=== PATIENT | male | born 1955 | race Caucasian/White ===

== ENCOUNTER 2020-11-25 08:51 | Inpatient (IN) ==
--- NOTE | 2020-10-26 14:05 | PAT Medication Instructions ---
Medication Instructions Date of Service October 26, 2020 Home Medications Medication Instructions Recorded oxycodone-acetaminophen [Percocet] 1 - 2 tab PO .Q4h-6h PRN #30 tab 03/05/20 MDD 6 allopurinol 300 mg PO 3XWK aspirin 81 mg PO QAM atorvastatin 20 mg PO QAM cholecalciferol (vitamin D3) [Vitamin D3] 125 mcg PO QAM fenofibrate micronized 134 mg PO 3XWK folic acid 1 mg PO QAM isosorbide mononitrate 30 mg PO QAM magnesium oxide 400 mg PO QAM metoprolol succinate 75 mg PO QAM Ozempic See Rx Instructions .ROUTE .COMPLEX oxycodone-acetaminophen [Percocet] 1 - 2 tab PO .Q4h-6h PRN Privigen 1 dose IV Q6M Continue as directed Ozempic See Rx Instructions .ROUTE .COMPLEX allopurinol 300 mg PO 3XWK ASK your prescriber and surgeon Privigen 1 dose IV Q6M STOP taking 48 hours before surgery fenofibrate micronized 134 mg PO 3XWK DO NOT take the morning of surgery cholecalciferol (vitamin D3) [Vitamin D3] 125 mcg PO QAM folic acid 1 mg PO QAM magnesium oxide 400 mg PO QAM Take morning of surgery With a small sip of water, OTHERWISE NOTHING TO EAT OR DRINK AFTER MIDNIGHT: atorvastatin 20 mg PO QAM isosorbide mononitrate 30 mg PO QAM metoprolol succinate 75 mg PO QAM oxycodone-acetaminophen [Percocet] 1 - 2 tab PO .Q4h-6h PRN (okay to take up to 4 hours prior to surgery if needed) Take evening before surgery oxycodone-acetaminophen [Percocet] 1 - 2 tab PO .Q4h-6h PRN (if needed) Other Notes If you have any questions please call us at [phone] or [phone] or [phone] or [phone]
--- NOTE | 2020-10-27 11:20 | Anesthesiology Consultation ---
Date of Service October 27, 2020 Assessment & Plan (1) Encounter for pre-operative examination: COVID Status: As of 10/27 assessment, patient denies travel to endemic area, known exposure/sick contacts, or symptoms of COVID19. Patient advised to adhere to social distancing guidelines, wear a mask in public and avoid large crowds or unnecessary travel in the 2 weeks leading up to surgery. Preoperative COVID19 testing to be completed prior to surgery per surgeon's arrangements (11/05 9). Patient encouraged to be extra cautious/conscientious with COVID precautions between COVID testing and surgery. S/P L shoulder scope 03/05/20 -- MAC 3, ETT 8.0, grade view 1. Smooth IV induction, DLx 1 atraumatic. Patient scheduled for cardiology clearance with [facility] 11/08/2020. Chart Review Chart Review: Acceptable Risk for Surgery (pending cardio clearance 11/08) and Patient seen in Pre Admission Testing Teaching & Discussion Instructed NPO after midnight before surgery, except medications with 15 cc of water. Medication instructions provided according to the PAT guidelines. History Surgery Operation Date: 11/25/20 09:15 Proposed Procedures p Left Total Knee Arthroplasty - Manuel Waldron DO Height/Weight Height: 5 ft 10 in Weight: 81.5 kg Allergies Allergy/AdvReac Type Severity Reaction Status Date / Time iodine Allergy Intermediate hives Verified 10/23/20 14:23 shellfish derived Allergy Intermediate hives Verified 10/23/20 14:23 Medications Home Medications Medication Instructions Recorded Confirmed Last Taken allopurinol 300 mg PO 3XWK 02/24/20 10/23/20 03/02/20 aspirin 81 mg PO QAM 02/24/20 10/23/20 03/01/20 atorvastatin 20 mg PO QAM 02/24/20 10/23/20 03/04/20 07:00 cholecalciferol (vitamin D3) 125 mcg PO QAM 02/24/20 10/23/20 03/04/20 07:00 [Vitamin D3] fenofibrate micronized 134 mg PO 3XWK 02/24/20 10/23/20 03/02/20 folic acid 1 mg PO QAM 02/24/20 10/23/20 03/04/20 07:00 isosorbide mononitrate 30 mg PO QAM 02/24/20 10/23/20 Unknown magnesium oxide 400 mg PO QAM 02/24/20 10/23/20 03/04/20 07:00 metoprolol succinate 75 mg PO QAM 02/24/20 10/23/20 03/04/20 08:00 Ozempic See Rx Instructions .ROUTE .COMPLEX 03/02/20 10/23/20 03/01/20 oxycodone-acetaminophen [Percocet] 1 - 2 tab PO .Q4h-6h PRN #30 tab 03/05/20 10/23/20 Unknown MDD 6 Privigen 1 dose IV Q6M 10/23/20 10/23/20 Unknown Past Medical History Medical History (Updated 10/27/20 @ 14:33 by Jayden Robbins) Asthma Per records -- no inh CAD (coronary artery disease) S/p stent to RCA (1997), CABG 1998, PCI x 3 approx 2004 at [place], cardiac cath 04/2015 with ISR PCI to RCA got repeat angioplasty GERD (gastroesophageal reflux disease) Per records Gout Hx of Hodgkins lymphoma 2018, s/p XRT, in remission, follows with S heme/onc. Recent PET scan clinically stable, next f/u with heme/onc 12/2020. Hx of myocardial infarction 1997 and had heart cath with 2 stents Hyperlipidemia Hypertension Multiple sclerosis Dx'ed 2011. Left sided weakness; follows with Dr. Cheko Sandhu, on Privigen (IVIg) infusions q6mo. Exercise / Class Metabolic Activity III < 4 Walking/Shop/Light housework (Denies CP or SOB with ambulation on one level, not doing stairs much due to leg weakness) Past Family History Family History Other No family history of adverse response to anesthesia Past Surgical History Surgical History History of cardiac cath 1997, 2004 - hx of multiple stents History of placement of ear tubes History of right inguinal hernia repair History of tonsillectomy History of tooth extraction Hx of CABG 1 vessel- CORRALES to LAD- 1998 - [facility] follow with [facility] cardio in [place] Hx of colonoscopy Hx of lymph node excision Past Anesthesia History No Hx of Anesthesia Complications and No Family Hx of Anesthesia Complications History of PONV No Hx of PONV and No Hx of Motion Sickness Social History Smoking Status: Former smoker Do You Dip or Chew Tobacco: No Smoking End Date: 20 years ago Hx Alcohol Use: No Hx Substance Use: No substance use type: does not use Review of Systems Pt denies any recent chest pain, shortness of breath, palpitations, cough, fever, URI, or uncontrolled acid reflux. Physical Exam Vital Signs BP: 120/83 P: 80bpm SPO2: 95% RA T: 98.5 F R: 14 ENMT Mouth: + dentures and + edentulous Thyromental Distance: > or= 3.5 Finger Breadths Mallampati Class: II Neck normal visual inspection; neck extension not limited Respiratory normal respiratory effort, lungs clear to auscultation + prolonged expiratory phase Cardiovascular RRR, no murmur, no edema Lab Results Anesthesia Preop Results Results Anesthesia Widget: WBC 3.56 K/uL (4.8-10.8) L 10/27/20 Hgb 15.1 g/dL (14.0-18.0) 10/27/20 Hct 46.0 % (42-52) 10/27/20 Plt 289 K/uL (130-400) 10/27/20 Na 139 mmol/L (136-145) 10/27/20 K 4.3 mmol/L (3.5-5.1) 10/27/20 Cl 107 mmol/L (98-107) 10/27/20 CO2 26 mmol/L (21-32) 10/27/20 BUN 31 mg/dl (7-18) H 10/27/20 Creat 1.13 mg/dl (0.6-1.4) 10/27/20 Glucose Level 143 mg/dl (70-99) H 10/27/20 PT 10.7 Seconds (9.0-12.0) 10/27/20 PTT 24.6 Seconds (21.0-31.0) 10/27/20 INR 1.1 (0.9-1.1) 10/27/20 HA1c 7.7 % (4.5-5.6) H 10/27/20 Urine Color Yellow 10/27/20 Urine Appearance Cloudy (Clear) A 10/27/20 Urine pH 5.5 (4.5-7.5) 10/27/20 Urine Specific Dar[place] 1.010 (1.000-1.030) 10/27/20 Urine Protein Negative (Negative) 10/27/20 Urine Glucose (UA) 2+ (Negative) H 10/27/20 Urine Ketones Negative (Negative) 10/27/20 Urine Blood Negative (Negative) 10/27/20 Urine Nitrite Negative (Negative) 10/27/20 Urine Bilirubin Negative (Negative) 10/27/20 Urine Urobilinogen Negative (Negative) 10/27/20 Urine Leukocyte Esterase Trace (Negative) H 10/27/20 Blood Type B Positive 10/27/20 Antibody Screen NEGATIVE 10/27/20 Testing Electrocardiogram Date: 07/14/20 Findings: + NSR @ (85bpm) RBBB. Chest X-Ray Date: 10/27/20 FINDINGS: There are postsurgical changes of a midline sternotomy. There is a right-sided A-Port catheter. There is no focal pulmonary consolidation. Rounded opacities of both lung bases are felt to represent nipple shadows. There is no failure. There is mild indistinctness of the left heart border, finding which is likely secondary to summation with a cardiophrenic angle fat pad. IMPRESSION: No active disease in the chest. Echocardiogram Date: 09/15/20 EF: 55-59% Mild concentric LVH. Grade 1 diastolic dysfunction of left ventricle. Nondilated cardiac chambers. Mild aortic valve sclerosis is present. Aortic stenosis is absent. Mild mitral annular calcifications. Significant mitral regurgitation is absent. The aortic root is mildly enlarged. Indeterminate IVC size and collapsibility. Right atrial pressure estimated at 8 mmHg. Trivial tricuspid regurgitation is present. The signal is inadequate to calculate PASP. No significant change compared to prior study from 2011. Stress Test Date: 06/08/18 Type: nuclear Resting EF: 74% Normal Lexiscan myocardial perfusion stress test. Cardiac Catheterization Date: 04/21/15 Impression: Significant two-vessel coronary artery disease. Patent CORRALES graft to LAD. Successful angioplasty and intravascular ultrasound imaging of the occluded RCA vessel where the previously deployed stents were placed. No additional stenting was performed. Normal LV systolic function. Other Testing PET/CT skull base to midthigh 09/14/20 1. Mildly hypermetabolic retrocaval lymph node with FDG uptake slightly greater than liver, which appears stable as compared with prior PET/CT dated 04/16/2020 and new as compared with the prior PET/CT dated 10/02/2019, concerning for lymphomatous involvement. 2. A stable mildly hypermetabolic enlarged left external iliac lymph node with FDG uptake less than that of blood pool. 3. 3 mildly to moderately hypermetabolic small subcutaneous nodules in the left upper medial thigh adjacent to gluteal region. Differential considerations include infectious/inflammatory process versus lymphomatous involvement. Recommended correlation with targeted physical examination. 4. Interval appearance of a patchy groundglass opacity in the right upper lobe with associated mild increased FDG uptake, likely representing infectious/inflammatory process. 5. Interval appearance of a fracture involving the left anterior 10th rib with associated increased FDG uptake.
--- NOTE | 2020-11-10 08:25 | History & Physical Report ---
Date of Service November 10, 2020 date of surgery: 11/25/20 Procedure: Left Total Knee Arthroplasty Assessment & Plan (1) Arthritis of knee, left: Further care discussed with patient and at this point in time has failed conservative measures and would like to proceed with a left total knee repl acement. Plan on discharge will be home with home health physical therapy. DVT prophylaxis with TEDs, SCDs and will also place on aspirin 81 mg p.o. b.i.d. for a month postop. Patient will have follow up appointment in our office two weeks post op for staple/suture removal and re-evaluation. Patient otherwise has no other questions or concerns. The risks and benefits have been discussed including, but not limited to, risk of infection, nerve injury, stiffness, loss of motion, failure to improve, etc. Reasonable outcomes and options of treatment were discussed. An explanation of appropriate alternatives to the procedure that may be advantageous were discussed and their risks and benefits, as well as the risks and benefits of not proceeding with treatment. I offered to answer any additional inquiries concerning the treatment involved. All the patient's questions were answered. The patient is agreeable, understanding of the treatment plan and alternatives, and wishes to proceed with the treatment plan. History of Present Illness Chief Complaint: left knee pain Primary Care Provider: LO PCP Otto is a 64 year old male who complains of left knee pain, presents for pre-op evaluation prior to a left total knee replacement by Dr Waldron at [facility]. He complains of pain and decreased range of motion in his left knee. Currently the patient states that the symptoms are moderate-severe and rated at 8/10. The pain is described as aching, sharp and throbbing. The symptoms occur continuously. The symptoms are aggravated by ascending stairs, daily activities, first steps while awake walking. Prior NSAIDs include IBU and Aleve. he has been treated with previous cortisone and visco injections in the past without much relief. Allergies Allergy/AdvReac Type Severity Reaction Status Date / Time iodine Allergy Intermediate hives Verified 10/23/20 14:23 shellfish derived Allergy Intermediate hives Verified 10/23/20 14:23 Home Medications Medication Instructions Recorded Confirmed Type allopurinol 300 mg PO 3XWK 02/24/20 10/23/20 History aspirin 81 mg PO QAM 02/24/20 10/23/20 History atorvastatin 20 mg PO QAM 02/24/20 10/23/20 History cholecalciferol (vitamin D3) 125 mcg PO QAM 02/24/20 10/23/20 History [Vitamin D3] fenofibrate micronized 134 mg PO 3XWK 02/24/20 10/23/20 History folic acid 1 mg PO QAM 02/24/20 10/23/20 History isosorbide mononitrate 30 mg PO QAM 02/24/20 10/23/20 History magnesium oxide 400 mg PO QAM 02/24/20 10/23/20 History metoprolol succinate 75 mg PO QAM 02/24/20 10/23/20 History Ozempic See Rx Instructions .ROUTE .COMPLEX 03/02/20 10/23/20 History oxycodone-acetaminophen [Percocet] 1 - 2 tab PO .Q4h-6h PRN #30 tab 03/05/20 10/23/20 Rx MDD 6 Privigen 1 dose IV Q6M 10/23/20 10/23/20 History Past Med/Surg History Medical History Asthma Per records -- no inh CAD (coronary artery disease) S/p stent to RCA (1997), CABG 1998, PCI x 3 approx 2004 at [place], cardiac cath 04/2015 with ISR PCI to RCA got repeat angioplasty GERD (gastroesophageal reflux disease) Per records Gout Hx of Hodgkins lymphoma 2018, s/p XRT, in remission, follows with S heme/onc. Recent PET scan 09/15/20 clinically stable, next f/u with heme/onc 12/2020. Hx of myocardial infarction 1997 and had heart cath with 2 stents Hyperlipidemia Hypertension Multiple sclerosis Dx'ed 2011. Left sided weakness; follows with Dr. Cheko Sandhu, on Privigen (IVIg) infusions q6mo. Surgical History History of cardiac cath 1997, 2004 - hx of multiple stents History of placement of ear tubes History of right inguinal hernia repair History of tonsillectomy History of tooth extraction Hx of CABG 1 vessel- CORRALES to LAD- 1998 - [facility] follow with [facility] cardio in [place] Hx of colonoscopy Hx of lymph node excision Family History Other No family history of adverse response to anesthesia Social History Smoking Status: Former smoker Second Hand Exposure: No; Hx Alcohol Use: No Hx Substance Use: No Preferred Language: Haitian Communication Ability: Effective Maintenance Trainer Required: No Beliefs That Will Affect Care: None Current Living Situation: Spouse Feels Safe at Home: Yes Assistive Devices: Cane, Denture - Upper, Denture - Lower and Glasses Review of Systems Review of Systems: All systems reviewed & are unremarkable except as noted in HPI & below Constitutional: no fever, no chills and no sweats Respiratory: no cough and no dyspnea Cardiovascular: no chest pain, no dyspnea and no orthopnea Gastrointestinal: no abdominal pain, no nausea and no vomiting Musculoskeletal: as per Subjective / HPI Physical Exam Physical Exam: HT: 5ft 10in WT: 81.5kg Constitutional: WD/WN, vitals as above no acute distress Respiratory: normal respiratory effort, lungs clear to auscultation no respiratory distress, no labored breathing and does not use accessory muscles Cardiovascular: RRR, no murmur, no edema Gastrointestinal (Abdomen): normal bowel sounds, soft, nontender, no hepatosplenomegaly Musculoskeletal: Knee: + knee abnormal to inspection (LEFT KNEE), + effusion (+1 effusion), + limited ROM of knee (ROM 0/3/110), + knee ROM with crepitation, + joint line tenderness (medial joint line) and + Max's sign positive; no deformity, no skin erythema, no ecchymosis, no valgus laxity, no varus laxity, anterior drawer test negative, Hilda's sign negative and pivot shift test negative Results & Data Results & Data ([facility]) Diagnostic Findings xrays and MRI reviewed which confirm osteoarthritis of his left knee, joint space narrowing and osteophyte formation. no acute bony pathology.
[~2020-11-25 08:51] MED LIST: ACETAMINOPHEN 500 MG TAB PO SCH; BUPIVACAINE 0.25% 30 ML VIAL ONE; BUPIVACAINE 0.5 % 5 MG/1 ML PF 10ML VIAL ONE; CeleBREX 200 MG CAP PO SCH; DEXAMETHASONE SOD INJ 4 MG/ML VIAL ONE; EPINEPHrine INJ 1 MG/ML AMP ONE; FAMOTIDINE 20 MG TAB PO SCH; GABAPENTIN 600 MG DOSE PO SCH; LR 500ML BOLUS, THEN 15ML/HR IV SCH; METOCLOPRAMIDE HCL 10 MG TABLET PO SCH; ROPIVACAINE 0.5% HCL/PF 150 MG, BUPIVACAINE 0.75% MPF 20 ML, EPINEPHrine 30MG/30ML (OR ... INSTIL SCH; TRANEXAMIC ACID 1,000 MG **IV Intra-op IV SCH; TRANEXAMIC ACID 1,000 MG **IV Pre-op IV SCH; ceFAZolin 2000MG 2,000 MG/15 ML SYR IV SCH; oxyCODONE HCL 10 MG TABCR (OxyCONTIN) PO SCH
--- NOTE | 2020-11-25 09:49 | History & Physical Bridge Note ---
Date of Service November 25, 2020 History & Physical Bridge Note I have examined the patient, reviewed the History & Physical and in the interval since the performance of the History & Physical I have noted the following changes of clinical significance: no changes noted
[2020-11-25] MEDS ORDERED: ONDANSETRON INJ 2 MG/ML 2 ML VIAL ONE (11:05)
[2020-11-25] MEDS ORDERED: DEXAMETHASONE SOD INJ 4 MG/ML VIAL ONE (11:05)
[2020-11-25] MEDS ORDERED: PROPOFOL IV EMULSION 10 MG/ML 20 ML VIAL IV ONE ×2 (11:05→12:46)
[2020-11-25] MEDS ORDERED: LIDOCAINE 2% 2 ML VIAL/AMP(20MG/ML) INFIL ONE (11:05)
[2020-11-25] MEDS ORDERED: fentaNYL citrate 100 MCG/2 ML VIAL ONE (11:08)
[2020-11-25] MEDS ORDERED: MIDAZOLAM HCL 1 MG/ML 2ML VIAL ONE (11:08)
[2020-11-25] MEDS ORDERED: ORTHO JOINT ANESTHETIC ONE (11:33)
[2020-11-25] MEDS ORDERED: fentaNYL citrate 100 MCG/2 ML VIAL IV PRN (11:57)
[2020-11-25] MEDS ORDERED: ATROPINE SULFATE 0.1 MG/ML 10ML SYR IV PRN (11:57)
[2020-11-25] MEDS ORDERED: ONDANSETRON INJ 2 MG/ML 2 ML VIAL IV PRN ×2 (11:57→16:38)
[2020-11-25] MEDS ORDERED: ePHEDrine sulfate 50 MG/ML AMP IV PRN (11:57)
--- NOTE | 2020-11-25 13:15 | Operative Report ---
Post Operative Report Pre & Post Diagnosis Operation Date: 11/25/20 11:25 Pre-Op Diagnosis: Osteoarthritis, Left Knee Post-Op Diagnosis: Osteoarthritis, Left Knee I identified the patient and participated in the time-out.: Yes Procedure Operation Date: 11/25/20 11:25 Actual Procedures p Left Total Knee Arthroplasty(Left) utilizing [employer] persona femur size 10 narrow tibia size F polytwelve medial constrained patella 31 x 8 oval- Manuel Waldron DO Surgeon Manuel Waldron DO Quality Management Nurse Deniz TIDWELL Estimated Blood Loss 5 Findings Consistent with Post-Op Diagnosis Patient presents with severe DJD left knee no response to conservative management patient has [id number] changes patellofemoral medial compartment patient has marginal osteophytes subchondral sclerosis subchondral cystic change as well as a moderate to large effusion Specimens Bone and cartilage Drains Medium bore Hemovac Anesthesia Type MAC Spinal Regional Complications none Disposition Accompanied Patient To Recovery: No Disposition: Recovery Room Indications Patient presents with DJD left knee after failed attempted conservative management clinic physical therapy anti-inflammatories relative rest activity modification corticosteroid injection viscosupplementation above intraoperative findings were noted Description of Procedure After proper prepping and draping of the left lower extremity anterior midline incision was made over the region of the extensor extensor mechanism after meticulous hemostasis was obtained and maintained in subcutaneous tissues a medial parapatellar incision was made The patella was subluxed lateralward the medial lateral gutter were cleaned from any hypertrophic synovitis and scar tissue of the distal femoral block was placed and the distal femoral osteotomy cut was made subsequently the chamfers anterior and posterior osteotomy cuts were made utilizing the 4-in-1 block the tibia was subsequently subluxed anteriorward medial and ateral meniscal remnants were excised in their entirety remnants of the anterior and posterior cruciate ligaments were excised in their entirety excellent exposure of the proximal tibia was obtained the tibial osteotomy guide was placed on the proximal tibial osteotomy cut was made once again the knee was irrigated with copious amounts of sterile saline solution the patella was subsequently everted lateralward thickened scar tissue around the patella was removed the patella was subsequently cut utilizing a freehand technique and was drilled prepared for final preparation and placement of patella socially flexion-extension gaps were checked and the equal and symmetric trials were placed to the appropriate femoral and tibial trials with poly-spacer being placed for equal flexion and extension gaps and full range of motion including extension to 0 and flexion to 140 the trial components after having been taken to recovery range of motion was subsequently removed meticulous hemostasis was obtained and maintained subsequently a knee block injection of joint cocktail including ropivacaine 0.5% 150 mg. Bupivacaine 0.5% epinephrine 1-200,030 mL's toradol 30 mg dexamethasone 4 mg ketamine 10 mg clonidine 100 micrograms normal saline solution 30 mg was infiltrated into the soft tissues of the posterior knee medial lateral gutters and periosteal synovium special attention was paid to protect neurovascular structures at all times subsequently trial components having been removed the knee was irrigated with sterile saline solution. debris was removed the proximal tibia was subsequently prepared and was made ready for the placement of the tibial component tibial component was also cemented and tamped into position the femoral component was subsequently placed and cemented in the position the patellar component was subsequently cemented in position because hemostasis once again obtained and maintained wound having been thoroughly irrigated with debridement and debridement lavage was performed as well as a medial parapatellar incision closed with #1 Vicryl in interrupted fashion subcutaneous was closed with #2 Vicryl skin was closed with skin clips. PA-C was necessary for prepping and drapping as well as wound closure of deep fascia Sub cutaneous tissue and skin and was necessary for the case. A sterile compressive dressing was placed patient was taken to recovery in stable condition of report dictated by Chivo I attest to the content of the Intraoperative Record and any orders documented therein. Any exceptions are noted below. I attest to the content of the Intraoperative Record and any orders documented therein. Any exceptions are noted below.
--- NOTE | 2020-11-25 14:30 | XRay Report ---
TWO VIEWS LEFT KNEE CLINICAL HISTORY: Postoperative examination. FINDINGS: AP and crosstable lateral portable views of the left knee are obtained. A left knee arthrop lasty is in near anatomic alignment. There has been undersurface remodeling of the patella. No acute fracture is seen. There are expected postoperative changes around the knee including a surgical drain , soft tissue edema, and subcutaneous gas. IMPRESSION: Expected postoperative changes status post left knee arthroplasty. No acute fracture is s een. ACT 112: Negative or not required by law. Electronically signed by: Dewey Pool M.D. 11/25/2020 2:28 PM
--- NOTE | 2020-11-25 14:56 | Anesthesiology Progress Note ---
Date of Service November 25, 2020 Anesthesia Post Procedure Vital Signs Vital Signs: Temp Pulse Pulse Resp BP Pulse Ox 11/25/20 14:45 36.3 C L 69 14 103/68 92 11/25/20 14:35 73 12 98/65 L 92 11/25/20 14:25 74 12 105/72 94 11/25/20 14:15 75 14 103/73 92 11/25/20 14:05 73 17 107/73 93 11/25/20 13:55 36.4 C L 76 20 109/75 96 11/25/20 10:08 36.7 C 69 18 119/83 98 Pain Intensity Left Knee: Pain Intensity: 5 Transfer of Care Handoff Completed per policy Notes Mental Status: alert / awake / arousable Patient Amnestic to Procedure: Yes Nausea / Vomiting: adequately controlled Pain: adequately controlled Airway Patency, RR, SpO2: stable & adequate BP & HR: stable & adequate Hydration State: stable & adequate Neuraxial Anesthesia: was administered and sensory block is resolving Anesthetic Complications: no major complications apparent and Pt Satisfied with anesthetic care
[2020-11-25] MEDS ORDERED: MAGNESIUM HYDROXIDE SUSP 30 ML UDC PO PRN (16:38)
[2020-11-25] MEDS ORDERED: bisacodyL 10 MG SUPP PR PRN (16:38)
[2020-11-25] MEDS ORDERED: METOCLOPRAMIDE HCL INJ 5 MG/ML 2 ML VIAL IV PRN (16:38)
[2020-11-25] MEDS ORDERED: NALOXONE HCL 0.4 MG/1 ML VIAL/CARP IV PRN (16:38)
[2020-11-25] MEDS ORDERED: HYDROmorphone INJ 1 MG/ML SYRINGE IV PRN (16:38)
[2020-11-25] MEDS ORDERED: diphenhydrAMINE Capsule 25 MG CAP PO PRN (16:38)
[2020-11-25] MEDS: ACETAMINOPHEN 500 MG TAB PO SCH ×2 (17:50→20:41)
[2020-11-25] MEDS: KETOROLAC 30 MG/ML VIAL IV SCH ×2 (17:54→21:57)
[2020-11-25] MEDS: SODIUM CHLORIDE 0.9% 1000ML 1,000 ML IV SCH (17:55)
[2020-11-25] MEDS ORDERED: HEPARIN 100 UNIT/ML 5ML FLUSH IV PRN (18:57)
[2020-11-25] MEDS: DOCUSATE SODIUM 100 MG CAP PO SCH (20:41)
[2020-11-25] MEDS: ceFAZolin 2000MG 2,000 MG/15 ML SYR IV SCH (20:41)
[2020-11-25] MEDS: INSULIN ASPART 100 UNITS/ML 3 ML PEN SC SCH (20:41)
[2020-11-25] MEDS: ASPIRIN 81 MG ECTAB PO SCH (20:41)
[2020-11-25] MEDS ORDERED: SENNA 8.6 MG TAB PO SCH (21:00)
[2020-11-26] MEDS: FENOFIBRATE: ORDER AWAITING ACTION SCH ×2 (00:17→08:58)
--- NOTE | 2020-11-26 01:01 | History and Physical Report ---
DATE OF CONSULTATION: 11/25/2020. CHIEF COMPLAINT: Status post left knee arthroplasty. HISTORY OF PRESENT ILLNESS: This is a 64-year-old male with past medical history significant for gout, hyperlipidemia, diabetes, asthma, history of CAD, hypertension, history of multiple sclerosis, history of Hodgkin's lymphoma, history of CABG status, history of intussusception. He is status post left knee arthroplasty, he has tolerated the procedure okay, has some pain at the surgical site. Denies any chest pain. No shortness of breath, no cough, no fevers, no nausea, no abdominal pain. He tolerated the diet. Resting comfortably. ALLERGIES: IODINE, SHELLFISH, STEROID. PAST MEDICAL HISTORY: As mentioned above. PAST SURGICAL HISTORY: Left axillary lymph node biopsy, cardiac catheterization, cardiac stent placement, colonoscopy, CABG, EGD, insertion of tunneled venous catheter, laparoscopic repair of inguinal hernia, tonsillectomy, adenoidectomy, left inguinal hernia repair. MEDICATIONS: The patient is on allopurinol 300 mg p.o. 3 times a week, aspirin 81 mg p.o. a.m., atorvastatin 20 mg p.o. a.m., vitamin D 125 mcg p.o. a.m., dalfampridine 10 mg p.o. b.i.d., fenofibrate 134 mg p.o. 3 times a week, folic acid 1 mg p.o. a.m., isosorbide mononitrate 30 mg p.o. a.m., magnesium 200 mg p.o. a.m., metoprolol succinate 75 mg p.o. a.m., modafinil 100 mg p.o. daily, Ozempic as directed, Privigen as directed. FAMILY HISTORY: Significant for mother has Alzheimer disease, heart disorder, hypertension; father has emphysema; sister has breast cancer, depression; brother has diabetes, heart disease, hypertension; sister has lung cancer. SOCIAL HISTORY: , quit smoking in 2001. Smoked half pack a day for 10 years. No alcohol use. No drug use. REVIEW OF SYSTEMS: As per HPI. Rest of review of systems is negative. PHYSICAL EXAMINATION: GENERAL: The patient is of moderate build, not in acute distress. VITAL SIGNS: Temperature 36.6, pulse 86, respiratory rate 20, blood pressure 113/75, oxygen 97% on room air. HEENT: Atraumatic. NECK: No JVD. No neck masses. CARDIOVASCULAR: S1 and S2 heard. Regular rate and rhythm. No murmur, no gallop. RESPIRATORY SYSTEM: Normal AP diameter. No accessory muscle use. No wheezing, no crackles. ABDOMEN: Soft, bowel sounds present, nontender, no distention. CENTRAL NERVOUS SYSTEM: Cranial nerves II through XII are grossly intact. EXTREMITIES: Status post left knee arthroplasty. LABORATORY DATA: SARS-CoV-2 PCR negative. ASSESSMENT AND PLAN: This is a 64-year-old male who presents status post left knee arthroplasty. 1. Left knee arthroplasty: Tolerated the procedure okay. Management as per orthopedics. 2. Diabetes: We will place him on insulin sliding scale. Follow the blood sugars. 3. History of multiple sclerosis: Continue his home medications. 4. History of coronary artery disease: Status post coronary artery bypass grafting. Continue on aspirin, statin, beta kt, and nitrate. 5. Hyperlipidemia: On statin. 6. Gout: On allopurinol. 7. Hx of Hodgkin lymphoma. follows with heme/onco. 8. Deep venous thrombosis prophylaxis. DISPOSITION: As per orthopedics. Job ID: [id number] [facility]
[2020-11-26] MEDS: ceFAZolin 2000MG 2,000 MG/15 ML SYR IV SCH (03:58)
[2020-11-26] MEDS: KETOROLAC 30 MG/ML VIAL IV SCH ×2 (03:59→10:06)
[2020-11-26] MEDS: ACETAMINOPHEN 500 MG TAB PO SCH ×2 (05:08→13:29)
[2020-11-26 06:18] LABS: Hematocrit (blood only) 39.2 % (42-52); Hemoglobin 12.9 g/dL (14.0-18.0); Mean Corpuscular Hemoglobin 27.7 pg (25-34); Mean Corpuscular Hgb Conc 32.9 g/dL (32-36); Mean Corpuscular Volume 84.1 fL (80-100); Mean Platelet Volume 10.2 fL (7.4-10.4); Platelet Count 230 K/uL (130-400); RDW Coefficient of Variation 13.6 % (11.5-14.5); RDW Standard Deviation 41.7 fL (36.4-46.3); Red Blood Count 4.66 M/uL (4.7-6.1)
[2020-11-26 06:44] LABS: Calcium 8.7 mg/dl (8.5-10.1); Creatinine Clr Calc Pharmacy 58.6 ml/min; Est GFR (African American) 64.8 ml/min; Est GFR (Non-African American) 55.9 ml/min; Potassium 3.9 mmol/L (3.5-5.1)
[2020-11-26] MEDS: SODIUM CHLORIDE 0.9% 1000ML 1,000 ML IV SCH (06:57)
[2020-11-26] MEDS: oxyCODONE HCL IR 5 MG TAB (IMMEDIATE RELEASE) PO PRN ×2 (07:53→11:59)
[2020-11-26] MEDS: ASPIRIN 81 MG ECTAB PO SCH (08:59)
[2020-11-26] MEDS ORDERED: MULTIVITAMIN TAB PO SCH (09:00)
[2020-11-26] MEDS ORDERED: ATORVASTATIN 20 MG TAB PO SCH (09:00)
[2020-11-26] MEDS ORDERED: METOPROLOL SUCC 25MG EXT REL TAB PO SCH (09:00)
[2020-11-26] MEDS ORDERED: FOLIC ACID 1 MG TAB PO SCH (09:00)
[2020-11-26] MEDS ORDERED: modafiniL 100 MG TAB PO SCH (09:00)
[2020-11-26] MEDS ORDERED: ISOSORBIDE MONO EXTENDED REL 30 MG TABCR PO SCH (09:00)
[2020-11-26] MEDS: DOCUSATE SODIUM 100 MG CAP PO SCH (09:00)
[2020-11-26] MEDS ORDERED: MAGNESIUM OXIDE 400 MG TAB PO SCH (09:00)
[2020-11-26] MEDS ORDERED: CHOLECALCIFEROL 1,000 UNITS 25 MCG TAB PO SCH (09:00)
[2020-11-26] MEDS: INSULIN ASPART 100 UNITS/ML 3 ML PEN SC SCH ×2 (09:12→12:23)
--- NOTE | 2020-11-26 09:31 | Orthopedic Progress Note ---
Date of Service November 26, 2020 Assessment & Plan (1) Arthritis of knee, left: Plan: Postop day 1 PT/OT protocols. Weightbearing as tolerated. Mild residual foot drop that is resolving. We will watch for now. If patient has difficulty with physical therapy secondary to this, consider continued therapy here in the hospital for at least 1 more day. DVT prophylaxis-aspirin p.o. twice daily, SCDs, SULLY reddy. Pain management as written. DC planning-patient would like to have home health services upon discharge. We will recheck him later today to see how his progressing with his physical therapy and if he is ambulatory, possible discharge. Admission and Anticipated Discharge Date Admission Date: November 25, 2020 Subjective Postop day 1 Patient currently sitting up in bed awake and alert. States that he has some numbness on the plantar aspect of his foot. Denies any shortness of breath, chest pain, lightheadedness. Pain is controlled currently. He states he does have some discomfort in and around the knee. No other complaints at this time. Physical Exam Physical Exam: Dressings are clean, dry, and intact. Calves are soft nontender. He is able to actively dorsiflex and plantarflex the left foot however he has a little bit of weakness with the dorsiflexion at this time. He is able to dorsiflex the great left great toe but is also weak. He does have some numbness noted on the plantar aspect of his foot that goes to his heel. Denies numbness on the dorsum of the foot. Hemovac drainage was 50 mL from the previous shift. Results & Data ([facility]) Vital Signs (Past 12 Hours) Vital Signs Temp Pulse Resp BP Pulse Ox 11/26/20 07:34 36.5 C 70 16 136/87 97 11/26/20 04:00 36.6 C 71 18 135/82 96 11/26/20 00:01 36.6 C 79 18 122/68 97 Laboratory Results Laboratory Results WBC 7.60 K/uL (4.8-10.8) 11/26/20 05:31 RBC 4.66 M/uL (4.7-6.1) L 11/26/20 05:31 Hgb 12.9 g/dL (14.0-18.0) L 11/26/20 05:31 Hct 39.2 % (42-52) L 11/26/20 05:31 MCV 84.1 fL (80-100) 11/26/20 05:31 MCH 27.7 pg (25-34) 11/26/20 05:31 MCHC 32.9 g/dL (32-36) 11/26/20 05:31 RDW Std Deviation 41.7 fL (36.4-46.3) 11/26/20 05:31 RDW Coeff of Priyanka 13.6 % (11.5-14.5) 11/26/20 05:31 Plt Count 230 K/uL (130-400) 11/26/20 05:31 MPV 10.2 fL (7.4-10.4) 11/26/20 05:31 Sodium 140 mmol/L (136-145) 11/26/20 05:31 Potassium 3.9 mmol/L (3.5-5.1) 11/26/20 05:31 Chloride 109 mmol/L (98-107) H 11/26/20 05:31 Carbon Dioxide 26 mmol/L (21-32) 11/26/20 05:31 Anion Gap 5.0 (3-11) 11/26/20 05:31 BUN 34 mg/dl (7-18) H 11/26/20 05:31 Creatinine 1.35 mg/dl (0.6-1.4) 11/26/20 05:31 Est Cr Clr Drug Dosing 58.6 ml/min 11/26/20 05:31 Est GFR ( Amer) 64.8 ml/min 11/26/20 05:31 Est GFR (Non-Af Amer) 55.9 ml/min 11/26/20 05:31 BUN/Creatinine Ratio 25.0 (10-20) H 11/26/20 05:31 Glucose 167 mg/dl (70-99) H 11/26/20 05:31 POC Glucose 152 mg/dl (70-99) H 11/26/20 08:33 Calcium 8.7 mg/dl (8.5-10.1) 11/26/20 05:31 COVID-19 Eval Order Covid19 IDNow atMPAC 11/25/20 Unknown SARS-CoV-2, RNA, NAAT NEGATIVE (NEGATIVE) 11/25/20 Unknown Impressions Knee X-Ray 11/25/20 13:58 TWO VIEWS LEFT KNEE CLINICAL HISTORY: Postoperative examination. FINDINGS: AP and crosstable lateral portable views of the left knee are obtained . A left knee arthroplasty is in near anatomic alignment. There has been undersurface remodeling of the patella. No acute fracture is seen. There are expected postoperative changes around the knee including a surgical drain, soft tissue edema, and subcutaneous gas. IMPRESSION: Expected postoperative changes status post left knee arthroplasty. No acute fracture is seen. ACT 112: Negative or not required by law. Electronically signed by: Dewey Pool M.D. 11/25/2020 2:28 PM
--- NOTE | 2020-11-26 14:27 | Discharge Summary ---
Date of Service date of discharge: November 26, 2020 date of admission: 11-25-20 Admission HPI Per Admitting Provider Otto is a 64 year old male who complains of left knee pain, presents for pre- op evaluation prior to a left total knee replacement by Dr Waldron at [facility]. He complains of pain and decreased range of motion in his left knee. Currently the patient states that the symptoms are moderate-severe and rated at 8/10. The pain is described as aching, sharp and throbbing. The symptoms occur continuously. The symptoms are aggravated by ascending stairs, daily activities, first steps while awake walking. Prior NSAIDs include IBU and Aleve. he has been treated with previous cortisone and visco injections in the past without much relief. Principal Diagnosis left knee arthrtiis Discharge Exam Vital Signs Temp Pulse Pulse Resp BP Pulse Ox 11/26/20 07:34 36.5 C 70 16 136/87 97 11/26/20 04:00 36.6 C 71 18 135/82 96 11/26/20 00:01 36.6 C 79 18 122/68 97 11/25/20 18:28 36.6 C 86 20 113/75 93 11/25/20 17:22 36.4 C L 81 16 112/72 95 11/25/20 17:04 77 18 107/71 96 11/25/20 16:20 36.5 C 73 16 114/77 96 11/25/20 15:50 68 18 126/79 98 11/25/20 15:20 36.3 C L 72 18 107/70 96 11/25/20 15:00 73 18 107/72 94 11/25/20 14:45 36.3 C L 69 14 103/68 92 11/25/20 14:35 73 12 98/65 L 92 Intake and Output 11/25/20 11/26/20 11/26/20 22:59 06:59 14:59 Intake Total 1700 / 2800 1000 / 2800 Output Total 810 / 2160 1350 / 2160 100 / 100 Balance 890 / 640 -350 / 640 -100 / -100 Intake: IV 100 / 1200 1000 / 1200 Sodium Chloride 0.9% 1000ML 1, 1000 / 1000 000 ml @ 100 mls/hr IV .Q10H [facility] Rx#:[id number] Tranexamic Acid / 0.7% NaCl 1, 100 / 100 000 mg In 100 ml @ 600 mls/hr IV TODAY@0600 [facility] Rx#:[id number] IV Perioperative 1600 / 1600 Output: Urine 775 / 5 1250 / 2024 Estimated Blood Loss 5 / 5 Drain Output 30 / 130 100 / 130 100 / 100 Left Knee Hemovac 30 / 130 100 / 130 100 / 100 Other: Weight 79.464 kg Patient Weight 11/27/20 06:59 Weight 79.464 kg Musculoskeletal left knee: NVDI, calf SNT, negative joy sign. DP palpable, able to wiggle toes/ankle movement without difficulty. dressing clean dry and intact. expected post-operative bruising noted. Discharge Data Allergies Allergy/AdvReac Type Severity Reaction Status Date / Time iodine Allergy Intermediate hives Verified 11/25/20 10:02 shellfish derived Allergy Intermediate hives Verified 11/25/20 10:02 Consultations 11/20/20 15:35 Consult Hospitalist Routine Procedures Performed Operation Date: 11/25/20 11:25 Actual Procedures p Left Total Knee Arthroplasty(Left) - Manuel Waldron DO Ordered Studies 11/25/20 05:00 US - OR guided needle placemen Routine Hospital Course (1) Arthritis of knee, left: Postop day 1 PT/OT protocols. Weightbearing as tolerated. Mild residual foot drop that is resolving. We will watch for now. If patient has difficulty with physical therapy secondary to this, consider continued therapy here in the hospital for at least 1 more day. DVT prophylaxis-aspirin p.o. twice daily, SCDs, SULLY reddy. Pain management as written. DC planning-patient would like to have home health services upon discharge. We will recheck him later today to see how his progressing with his physical therapy and if he is ambulatory, possible discharge. Total Time Total Time Spent Total Time Spent (In Minutes): 20 Discharge Plan Discharge Items Patient Disposition: Home - Home Health Services Reason For Visit: Osteoarthritis, Left Knee Discharge Diagnosis: Osteoarthritis left knee Activity: Per Instructions section Weightbearing: Left weightbearing Weightbearing Comment: As tolerated with walker Non-emergency contact: Surgeon Call non-emergency contact if: you have any medication questions, your temperature is above 101.5, your wound has increased redness and your wound has increased drainage Follow-up/Referrals: Blu Lopez MD [Primary Care Provider] - Diet: Regular Addtl Attending Provider Instructions: ACTIVITY RECOMMENDATIONS: SELF CARE INSTRUCTIONS AFTER TOTAL KNEE REPLACEMENT A. You may need to continue a physical therapy program after discharge from the hospital. There are several options available to you. Your doctor will assist you in selecting the best one for you. 1. An out-patient facility 2 to 3 times a week for therapy or home therapy. 2. Continue working on all exercises taught to you in the hospital. Your goals should be to increase bending of your knee to 90 degrees and beyond and to fully straighten your knee. B. You may progress at your own pace from walking with a walker or crutches to a cane; then to no assistive devices. C. Make walking a part of your daily routine. Be up as much as comfortable with rest periods throughout the day. Rest with leg elevation is very important. Use the ice wrap frequently for the first 3-4 weeks. D. There are no restrictions on activities. You may ride in a car, shop, participate in clinical trial data manager and all social activities. E. Wear the long elastic stockings (SULLY hose) 20 hours a day for 2 weeks after surgery. They can be removed several times a day for laundering and for a bath. F. You may shower, no tub baths until cleared by your doctor. SPECIAL CARE INSTRUCTIONS: VERY IMPORTANT TO READ AND REVIEW A. There are a few signs you need to watch for after you are home. Call [facility] if you notice any of the followin. Increased severe knee pain. Some pain is expected especially when you exercise. 2. Increased swelling in your leg or knee; pain or swelling of the calf muscle in either lower leg. 3. Any fluid drainage from the incision. 4. Shortness of breath or chest pain. B. Please call [facility] at if you have any concerns or questions about your operation or recovery. The doctor or his nurse will return your call promptly. C. You must take antibiotics before dental work, bladder, bowel or other surgery. Your doctor will provide you with a permanent care to carry describing this precaution. IMPORTANT: * REMEMBER TO TAKE ASPIRIN, 81 MG, TWICE DAILY FOR 4 WEEKS UNLESS OTHERWISE DIRECTED. THIS IS YOUR BLOOD THINNER. * HIGH RISK PATIENTS MAY BE PRESCRIBED A STRONGER BLOOD THINNER. THIS WILL BE PROVIDED AT DISCHARGE. * CALL IF INCREASED PAIN, REDNESS, DRAINAGE OR FEVER GREATER THAT 101. * WEAR SULLY HOSE 20 HOURS PER DAY FOR 2 WEEKS. * DERMABOND Prineo- This is a mesh tape dressing that is covered with glue. It should remain in place until the incision is properly healed, usually 10-14 days. This dressing is designed to naturally slough off. You may trim the excess mesh tape as it peels off. Incision may be briefly wet in a shower. Dry immediately by blotting with a clean, dry towel. Do not bath or swim until instructed by your doctor. Do not scratch, rub, or pick at the dressing. Do not apply any topical ointments or lotions until dressing is completely removed and/or instructed by your doctor. There may be a small piece of suture material at one end of your incision. Do not pull or trim this. If it is bothersome or catching on clothing, you may cover it with a band-aid. IF INCISION IS LEAKING THROUGH DRESSING, CALL THE OFFICE . FOLLOW UP VISIT: If appointment is not already scheduled: Please call [facility] to make a follow-up appointment for 2 weeks after your surgery at . Pending Studies at Discharge: No Stand-Alone Forms: My [facility] EasyCopay, Opioid Pain Management, Smoking Cessation Medications and DC Order Prescriptions: New acetaminophen [Tylenol Extra Strength] 500 mg Tablet 1,000 mg PO Q8 14 Days Qty: 84 RF: 0 celecoxib [Celebrex] 200 mg Capsule 200 mg PO BID 30 Days Qty: 60 RF: 0 aspirin 81 mg Tablet,Delayed Release (Dr/Ec) 81 mg PO BID 30 Days Qty: 60 RF: 0 polyethylene glycol 3350 [Miralax] 17 gram powder in packet 17 g PO DAILY PRN (Reason: constipation) Qty: 5 RF: 0 cefadroxil 500 mg capsule 500 mg PO BID Qty: 28 RF: 1 oxycodone 5 mg Tablet 5 mg PO Q4H MDD 6 PRN (Reason: pain) Qty: 30 RF: 0 Continued atorvastatin 20 mg Tablet 20 mg PO QAM RF: 0 metoprolol succinate 50 mg Tablet Extended Release 24 Hr 75 mg PO QAM RF: 0 isosorbide mononitrate 30 mg Tablet Extended Release 24 Hr 30 mg PO QAM RF: 0 fenofibrate micronized 134 mg Capsule 134 mg PO 3XWK RF: 0 folic acid 1 mg Tablet 1 mg PO QAM RF: 0 allopurinol 300 mg Tablet 300 mg PO 3XWK RF: 0 cholecalciferol (vitamin D3) [Vitamin D3] 125 mcg (5,000 unit) Tablet 125 mcg PO QAM RF: 0 magnesium oxide 400 mg magnesium Capsule 400 mg PO QAM RF: 0 Ozempic 0.25 mg or 0.5 mg(2 mg/1.5 mL) Pen Injector See Rx Instructions .ROUTE .COMPLEX RF: 0 Privigen 1 dose IV Q6M RF: 0 dalfampridine 10 mg tablet extended release 12 hr 10 mg PO BID RF: 0 modafinil 100 mg Tablet 100 mg PO DAILY RF: 0 Discontinued aspirin 81 mg Tablet,Delayed Release (Dr/Ec) 81 mg PO QAM RF: 0 Discharge Orders: Discharge Order (Routine); Ordered 11/26/20 Ordered By: Toni Fiore/Other Patient Handouts: Preventing Deep Vein Thrombosis Admission Data Admit Date/Time: 11/25/20 13:58 Attending Provider: Maunel Waldron Admit Provider: Manuel Waldron Primary Care Provider: Blu Lopez Other Providers: Kylie Herrera ; [facility],Home Healthcare Other Interventions: Discharge Summary Assessment (RN) Last Done: 11/26/20 12:21
[2020-11-26] MEDS ORDERED: CeleBREX 200 MG CAP PO SCH (21:00)
== END 2020-11-26 14:24 | disposition home or self-care (01) | DRG 470 ==
LOC: ASU 08:51 → PACUINP 08:51 → OBSVTOIN 13:58 → 3E 16:24